=== PATIENT | male | born 1975 | race African-American/Black ===

== ENCOUNTER 2016-05-20 21:25 | Emergency (ER) | payer OTHER ==
[2016-05-20 21:34] VITALS: BP 137/104
[2016-05-20] MEDS ORDERED: predniSONE 20 MG Tab PO STA (21:47)
[2016-05-20] MEDS ORDERED: Albuterol/Ipratropium 3.0-0.5 MG/3 ML Neb Soln NEB STA (21:48)
--- NOTE | 2016-05-20 22:31 | EDM.PDOC ---
ED HISTORY OF PRESENT ILLNESS - General Chief Complaint: Asthma Stated Complaint: ASTHMA ATTACK Time Seen by Provider: 05/20/16 21:34 Source of Information: Reports: Patient, RN notes reviewed History Limitations: Reports: No limitations - History of Present Illness INITIAL COMMENTS - FREE TEXT/NARRATIVE: The patient states that he recently moved here from [place], and forgot to bring his albuterol. His last dose was about 4 days ago. He has also been out of [facility] for about one month, stating no insurance, although he now states that he has insurance. He states that he suffers symptoms of shortness of breath and wheezing nearly daily, because he smokes. He states that he has had shortness of breath, wheezing, and an occasional dry cough for the past 3 or 4 days. He also reports some diaphoresis yesterday and today. No recent fever. He states that he has been told he has asthma, but the symptoms began only 2 or 3 years ago, and he has never seen a Industrial Relations Analyst or undergone pulmonary function tests. - Related Data Allergies/ADRs: Allergies Allergy/AdvReac Type Severity Reaction Status Date / Time No Known Allergies Allergy Verified 05/20/16 21:31 Home Meds: Home Meds Albuterol [IJD: Ventolin HFA] 1 - 2 puff INH Q4H PRN 05/20/16 [History] Fluticasone Propionate [Flovent HFA 110 MCG] 2 puff INH DAILY #1 inhaler [Rx] Fluticasone Propionate [Flovent Hfa] 1 - 2 puff INH ASDIRECTED PRN 05/20/16 [ History] Past Medical History HEENT History: Reports: Allergic rhinitis Respiratory History: Reports: Asthma (Suspected, not diagnosed) Social & Family History - Tobacco Use Smoking Status *Q: Current Every Day Smoker Years of Tobacco use: 18 Packs/Tins Daily: 2 - Alcohol Use Alcohol Use History: Yes Days Per Week of Alcohol Use: 6 Number of Drinks Per Day: 2 Total Drinks Per Week: 12 - Recreational Drug Use Recreational Drug Use: No - Living Situation & Occupation Living situation: Reports: single, with significant other (Marquez and her daughter) 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 Denies: fever HEENT: Reports: No symptoms Respiratory: Reports: Shortness of Breath (as per the HPI), Wheezing (as per the HPI), Cough (as per the HPI) Cardiovascular: Reports: No symptoms Endocrine: Reports: no symptoms GI/Abdominal: Reports: No symptoms : Reports: no symptoms Musculoskeletal: Reports: no symptoms Skin: Reports: no symptoms Neurological: Reports: No Symptoms Psychiatric: Reports: No symptoms Hematologic/Lymphatic: Reports: no symptoms Immunologic: Reports: no symptoms ED EXAM, GENERAL - Physical Exam Exam: See Below Exam Limited By: No limitations General Appearance: alert, WD/WN, no apparent distress Eye Exam: bilateral eye: EOMI, normal inspection Ears: normal external exam, hearing grossly normal Ear Exam: bilateral ear: auricle normal Nose: normal inspection, no blood Throat/Mouth: Normal inspection, Normal lips, Normal voice, No airway compromise Head: atraumatic, normocephalic Neck: normal inspection, full range of motion Respiratory/Chest: no respiratory distress, no accessory muscle use, decreased breath sounds, wheezing (Throughout lung [place], but particularly bibasilarly), prolonged expiration Cardiovascular: normal peripheral pulses, regular rate, rhythm, no edema, no gallop, no JVD, no murmur, no rub Peripheral Pulses: 4+: radial (L), radial (R) GI/Abdominal: normal bowel sounds, soft, non tender, no organomegaly, no distention, no abnormal bruit, no mass Back Exam: normal inspection, full range of motion, NT Extremities: normal inspection, normal range of motion, non-tender, normal capillary refill, no pedal edema Neurological: alert, oriented, normal cognition, no motor/sensory deficits Psychiatric: normal affect Skin Exam: Warm, Dry, Intact, Normal color, No rash Lymphatic: no adenopathy Course - Vital Signs Last Recorded V/S: Last Vital Signs Temp 35.6 C 05/20/16 21:32 Pulse 98 05/20/16 21:32 Resp 20 05/20/16 21:32 BP 137/104 H 05/20/16 21:32 Pulse Ox 94 L 05/20/16 21:59 - Orders/Labs/Meds Orders: Active Orders 24 hr Category Date Time Status RT Aerosol Therapy [RC] ASDIRECTED Care 05/20/16 21:49 Active Chest 2V [CR] Stat Exams 05/20/16 21:44 Taken Labs: Laboratory Tests 05/20/16 05/20/16 Range/Units 21:57 21:57 WBC 10.28 H (4.23-9.07) K/mm3 RBC 5.73 (4.63-6.08) M/mm3 Hgb 16.9 (13.7-17.5) gm/L Hct 48.1 (40.1-51.0) % MCV 83.9 (79.0-92.2) fl MCH 29.5 (25.7-32.2) pg MCHC 35.1 (32.2-35.5) g/dl RDW Std Deviation 40.9 (35.1-43.9) fL Plt Count 189 (163-337) K/mm3 MPV 10.5 (9.4-12.3) fl Neutrophils % (Manual) 62 H (40-60) % Band Neutrophils % 0 (0-10) % Lymphocytes % (Manual) 28 (20-40) % Atypical Lymphs % 0 % Monocytes % (Manual) 5 (2-10) % Eosinophils % (Manual) 5 (0.8-7.0) % Basophils % (Manual) 0 L (0.2-1.2) Toxic Granulation 1+ slight Platelet Estimate Adequate Plt Morphology Comment See note RBC Morph Comment Normal Sodium 138 (136-145) mEq/L Potassium 3.9 (3.5-5.1) mEq/L Chloride 103 (98-107) mEq/L Carbon Dioxide 26 (21-32) mEq/L Anion Gap 12.9 (5-15) BUN 9 (7-18) mg/dL Creatinine 1.3 (0.7-1.3) mg/dL Est Cr Clr Drug Dosing 90.88 mL/min Estimated GFR (MDRD) > 60 (>60) mL/min BUN/Creatinine Ratio 6.9 L (14-18) Glucose 95 (74-106) mg/dL Calcium 9.0 (8.5-10.1) mg/dL Total Bilirubin 0.3 (0.2-1.0) mg/dL AST 27 (15-37) U/L ALT 39 (16-63) U/L Alkaline Phosphatase 68 (46-116) U/L Total Protein 7.0 (6.4-8.2) g/dl Albumin 3.6 (3.4-5.0) g/dl Globulin 3.4 gm/dL Albumin/Globulin Ratio 1.1 (1-2) Meds: Medications Discontinued Medications Generic Name Dose Route Start Last Admin Trade Name Yamileth PRN Reason Stop Dose Admin Albuterol/Ipratropium 3 ml 05/20/16 21:48 05/20/16 21:59 Duoneb 3.0-0.5 Mg/3 Ml NEB 05/20/16 21:49 3 ml ONETIME STA Administration Prednisone 60 mg 05/20/16 21:47 05/20/16 22:05 Prednisone PO 05/20/16 21:48 60 mg ONETIME STA Administration - Radiology Interpretation Free Text/Narrative:: Two-view chest radiograph appears to be grossly normal. Cardiac silhouette is within normal limits. No pulmonary vascular congestion. No pleural effusions. No focal infiltrate, although there appears to be increased density to the lung tissue, that may be due to body habitus. No pneumothorax. Formal read per the Radiologist pending. - Re-Assessments/Exams Free Text/Narrative Re-Assessment/Exam: 05/20/16 23:15 The patient was reevaluated after receiving a DuoNeb treatment and 60 mg prednisone. At this time, no wheezes or prolonged exhalation. The patient states he feels much better. I will discharge him home with a prescription for an albuterol MDI via [facility] , and I will e-prescribe Flovent. Additionally, I will refer him to the Industrial Relations Analyst Dr. Lovelace for pulmonary function tests and further treatment. Departure - Departure Time of Disposition: 23:20 Disposition: Home, Self-Care 01 Condition: good Clinical Impression: Asthma exacerbation Prescriptions: Fluticasone Propionate [Flovent HFA 110 MCG] 2 puff INH DAILY #1 inhaler Instructions: Asthma, Adult Referrals: PCP,None [Primary Care Provider] - Malena Lovelace MD [Ordering Only Provider] - Forms: ED Department Discharge Additional Instructions: You were seen in the emergency room today for short of breath, wheezing, and an occasional cough. Workup in the ER included blood work and a chest x-ray. Your blood work was normal, but your chest x-ray shows some haziness to your lungs. This may be normal for you, but we are recommending further evaluation. Your symptoms significantly improved after a Duoneb and oral prednisone. You have been prescribed an albuterol MDI. Use as often as necessary to treat symptoms of shortness of breath with wheezing, with or without a cough, however , if you require treatment more often than every 4 hours, you need to be seen by a doctor. When using albuterol, we recommend that you use a spacer chamber. If you do not have a spacer chamber available, we recommend you hold the device about 1 inch from your mouth, start inhaling slowly, actually the device, then continue inhaling to a full breath. Hold your breath for 10 seconds before exhaling. You have been prescribed Flovent. Take 2 puffs once a day, as prescribed. Followup with the Industrial Relations Analyst Dr. Malena Lovelace for formal evaluation and recommendations. We STRONGLY recommend you quit smoking immediately. If any other problems, please do not hesitate to return to the ER. - My Orders Last 24 Hours: My Active Orders 05/20/16 21:44 Chest 2V [CR] Stat 05/20/16 21:49 RT Aerosol Therapy [RC] ASDIRECTED - Assessment/Plan Last 24 Hours: My Active Orders 05/20/16 21:44 Chest 2V [CR] Stat 05/20/16 21:49 RT Aerosol Therapy [RC] ASDIRECTED
--- NOTE | 2016-05-21 08:33 | CR ---
Chest: Two views of the chest were obtained. Comparison: No previous chest x-ray. Heart size and mediastinum are normal. Central lung markings slightly increased possibly due to mild bronchitis. Lungs otherwise are clear. Bony structures are unremarkable. Impression: 1. Possible bronchitis. Diagnostic code #3
== END 2016-05-20 23:47 | disposition home or self-care (01) ==
LOC: JD.ED 21:25
DX: J45.901 Unspecified asthma with (acute) exacerbation (principal); F17.210 Nicotine dependence, cigarettes, uncomplicated; Z79.51 Long term (current) use of inhaled steroids
CPT/HCPCS: 36415; 71020; 80053; 85025; 94664; 99285; A9270; 99284